=== PATIENT | female | born 1935 | race African-American/Black ===

== ENCOUNTER 2022-02-08 11:19 | Inpatient (IN) | payer MEDICARE, OTHER ==
[~2022-02-08] VITALS: Ht 170.2 cm; Wt 70.4 kg
--- NOTE | 2022-02-08 11:56 | NUR ---
PT IS IN ROOM #3. DR WADE EVALUATED THE PT.
[2022-02-08 12:21] LABS: HEMATOCRIT 37.3 % (31.2-41.9); MEAN CORPUSCULAR HEMOGLOBIN 29.5 uug (24.7-32.8); MEAN CORPUSCULAR VOLUME 89.2 fL (75.5-95.3); PLATELET COUNT (AUTO) 220 K/uL (179-408)
[2022-02-08 12:35] LABS: CARBON DIOXIDE 26 mmol/L (21-32); CHLORIDE 106 mmol/L (98-107); CREATININE 1.3 mg/dL (0.6-1.3); ETHANOL < 3 MG/DL (0-0); GLUCOSE 138 mg/dL (74-106); POTASSIUM 3.7 mmol/L (3.5-5.1); UREA NITROGEN, BLOOD 17 mg/dL (7-18)
[2022-02-08] MEDS ORDERED: MAGN400C PO (12:36)
[2022-02-08] MEDS ORDERED: ERGO500040 PO (12:36)
[2022-02-08] MEDS ORDERED: TEMA15CA PO (12:36)
[2022-02-08] MEDS ORDERED: DORZ10DR11 EACHEYE (12:36)
[2022-02-08] MEDS ORDERED: LATA2.5D15 EACHEYE (12:36)
[2022-02-08] MEDS ORDERED: LOVA40TA2 PO (12:36)
[2022-02-08] MEDS ORDERED: AMLO-212 PO (12:36)
[2022-02-08] MEDS ORDERED: OMEP20TA5 PO (12:36)
[2022-02-08] MEDS ORDERED: IPRA-ALBUTEROL IH (12:36)
[2022-02-08] MEDS ORDERED: BRIM5DRO2 EACHEYE (12:36)
[2022-02-08] MEDS ORDERED: THIO25TA PO (12:36)
[2022-02-08] MEDS ORDERED: OLAN2.5T3 PO (12:36)
[2022-02-08 12:41] LABS: ALANINE AMINOTRANSFERASE 21 U/L (14-59); ALKALINE PHOSPHATASE 37 U/L (50-136); ASPARTATE AMINOTRANSFERASE 13 U/L (15-37); BILIRUBIN,DIRECT 0.1 mg/dL (0.0-0.2); BILIRUBIN,TOTAL 0.2 mg/dL (0.2-1.0); TOTAL PROTEIN, SERUM 6.5 g/dL (6.4-8.2)
[2022-02-08 12:57] LABS: ACETAMINOPHEN < 2.0 ug/mL (10-30)
--- NOTE | 2022-02-08 17:00 | NUR ---
GPS: RECEIVED A REPORT FROM DIANE VILLANUEVA OF ER DEPT ABOUT PT TO BE ADMITTED TO MHU. PT 86 YO FEMALE FROM HOME, FULL CODE WITH NO KNOWN ALLERGY. PER REPORT, PT IS HAVING AUDITORY AND VISUAL HALLUCINATIONS. 5150 PROBABLE CAUSE IS GRAVE DISABILITY DATED 02/08/22 AT 1645. URINALYSIS DONE AND WAITING FOR RESULT. SKIN INTACT. COVID TEST DONE AND NEGATIVE. PT WITH INTERMITTENT CONFUSION ALERT ORIENTED 1-2. UNSTEADY. ON DIAPER AND ASSIST WITH CARE. WILL WAIT FOR PT.
--- NOTE | 2022-02-08 18:19 | NUR ---
PT WAS EVALUATED BY CRISIS PRECISION MACHINIST LOYDA. PT IS ON HOLD GRAVELY DISABLED. PT WAS TRANSFERED TO ROOM #140B. REPORT WAS GIVEN TO MHU RN.
[2022-02-08] MEDS ORDERED: MAGNESIUM HYDROXIDE 30 ML LIQUID UDC PO PRN (18:30)
[2022-02-08] MEDS ORDERED: MAG HYDROX/AL HYDROX/SIMETH 30 ML LIQUID UDC PO PRN (18:30)
[2022-02-08] MEDS ORDERED: ACETAMINOPHEN 325 MG TABLET PO PRN (18:30)
[2022-02-08] MEDS ORDERED: CLONAZEPAM 0.5 MG TABLET PO PRN (18:30)
[2022-02-08] MEDS ORDERED: TEMAZEPAM 7.5 MG CAPSULE PO PRN (18:30)
--- NOTE | 2022-02-08 18:30 | NUR ---
GPS: PT RECEIVED AT [facility] BY MEDICAL ECONOMICS CONSULTANT. PT ACCOMPANIED BY DAUGHTER. DENIES ANY PAIN OR DISCOMFORT. NOT IN DISTRESS AND NO SHORTNESS OF BREATH NOTED. PT APPEARS TO BE PLEASANT. PT HAD DINNER IN THE ROOM. BODY ASSESSMENT DONE WITH STAFF WITH DAUGHTER INSIDE THE ROOM. SKIN INTACT. OLD WHITE SCAR NOTED ON LEFT BUTTOCK WITH NO REDNESS NOTED. INFORMED TONA RYAN, MELIZA FOR DR ABDI. WILL NOTIFY ADONIAN (CARE SERVICES MANAGER).
[2022-02-08 18:34] VITALS: BP 143/60
[2022-02-08] MEDS ORDERED: BLOOD SUGAR DIAGNOSTIC 1 EACH STRIP VI ONE (18:45)
--- NOTE | 2022-02-08 19:30 | NUR ---
GPS: Talked with pt daughter and gave information regarding her mother. Daughter took patient belongings. Daughter wants her mother to be evaluated regarding pt diverticulitis and chest pain. As per daughter her mother had chest pain few weeks ago. retirement assessment done. Pt doesn't have any pain. Pt medically cleared from ER. Pt in no acute distress.Will continue to monitor.
[2022-02-08] MEDS ORDERED: Medication Not On Formulary EA (Omeprazole 1 TAB) PO SCH (21:00)
[2022-02-08] MEDS: ATORVASTATIN 10 MG TABLET PO SCH (21:26)
--- NOTE | 2022-02-08 21:26 | NUR ---
Restoril 7.5mg prn given to pt for sleep as per pt request. pt tolerated it well. Will continue to monitor.
[2022-02-08] MEDS: LATANOPROST OPHT DROP 2.5 ML BOTTLE EACHEYE SCH (21:37)
[2022-02-08 22:06] LABS: *BILIRUBIN,URIN NEGATIVE (NEGATIVE); *BLOOD, URINE NEGATIVE (NEGATIVE); *CLARITY,URINE SLIGHTLY CLOUDY (CLEAR); *COLOR,URINE YELLOW (YELLOW); *KETONES,URINE NEGATIVE (NEGATIVE); *UROBILINOGEN,URINE 0.2 E.U./dl (NORMAL); LEUKOCYTE ESTERASE ,URINE NEGATIVE (NEGATIVE); NITRITE, URINE POSITIVE (NEGATIVE); PH,URINE 6.5 (5.0-8.0); UGLUCOSE NEGATIVE (NEGATIVE)
[2022-02-08 22:22] LABS: *AMPHETAMINE, URINE NEGATIVE (NEGATIVE); *CANNABINOID, URINE NEGATIVE (NEGATIVE); *COCCAINE, URINE NEGATIVE (NEGATIVE); *OPIATE, URINE NEGATIVE (NEGATIVE); *PHENCYCLIDINE SCREEN,URINE NEGATIVE (NEGATIVE)
[2022-02-08 23:39] LABS: RBC,URINE 0-3 /HPF (0-3); WBC,URINE 0-3 /HPF (0-3)
[2022-02-08 23:40] LABS: BACTERIA,URINE MANY /HPF (NONE SEEN); SQUAMOUS EPITHELIAL CELL,UR FEW /HPF (NONE SEEN)
[2022-02-09] MEDS: PANTOPRAZOLE SODIUM 40 MG TABLET.DR PO SCH (06:02)
--- NOTE | 2022-02-09 06:17 | NUR ---
GPS: Pt slept seven hours. Pt in no acute distress. Pt turned and repositioned. Pt had episodes of forgetfulness and needs reorientation. Prescribed medication given and pt tolerated it well. Safety and comfort provided. All needs are met. Will endorse to incoming nurse for continuity of care.
--- NOTE | 2022-02-09 06:48 | NUR ---
GPS:Daughter of the pt called and wants update regarding her mother. Daughter said that her mother is taking the VitD2 once every other week. Her mom got it last Monday. Will endorse to incoming nurse.
[2022-02-09 07:30] VITALS: BP 163/73
[2022-02-09] MEDS: DORZOLAMIDE/TIMOLOL OPHT DROP 10 ML BOTTLE EACHEYE SCH ×2 (08:38→16:41)
[2022-02-09] MEDS: MAGNESIUM OXIDE 400 MG TABLET PO SCH (08:38)
[2022-02-09] MEDS: AMLODIPINE 5 MG TABLET PO SCH (08:38)
[2022-02-09] MEDS: NITROFURANTOIN/NITROFURAN MAC 100 MG CAPSULE PO SCH ×2 (09:30→20:55)
--- NOTE | 2022-02-09 11:20 | NUR ---
Family Contact: SW called and spoke to the pt.'s daughter, Gloria Bess ([phone]) who stated that she is the POA and brought the advanced healthcare directive when pt. was admitted.
--- NOTE | 2022-02-09 11:20 | NUR ---
Initial Discharge Plan: Pt. currently resides at [[id number] [place] [address]] where she lives with her daughter, Gloria Bess ([phone]). Pt. could not state her discharge wishes at this time. Pt.s daughter Gloria Bess ([phone]) stated that she wants the pt. to return home [[id number] [place] [address]] when ready for discharge. SW will continue to collaborate with the family, psychiatrist and the pt. to coordinate a safe and appropriate discharge.
--- NOTE | 2022-02-09 11:25 | NUR ---
SW Admit Source: The pt. was brought in by daughter, Gloria ([phone]) to [facility] ED from home[[id number] [place] [address]] after pt. became increasingly delusional, confused, irritable and responding to visual and auditory hallucinations. Pt. was placed on 5150 hold for GD. Per hold, Gloria reported pt. has decreased appetite, neglecting her hygiene and is unmanageable at home. Gloria would like for the pt. to be discharged to home when stable.
[2022-02-09] MEDS ORDERED: THIORIDAZINE 10 MG TABLET PO SCH (13:00)
[2022-02-09 13:45] LABS: HEMATOCRIT 37.8 % (31.2-41.9); MEAN CORPUSCULAR HEMOGLOBIN 29.7 uug (24.7-32.8); PLATELET COUNT (AUTO) 222 K/uL (179-408)
[2022-02-09 13:56] LABS: CARBON DIOXIDE 26 mmol/L (21-32); CHLORIDE 106 mmol/L (98-107); CREATININE 1.4 mg/dL (0.6-1.3); GLUCOSE 181 mg/dL (74-106); POTASSIUM 3.8 mmol/L (3.5-5.1); UREA NITROGEN, BLOOD 15 mg/dL (7-18)
--- NOTE | 2022-02-09 15:40 | NUR ---
patient is confused and disoriented unable to make any needs known,refused all medication ,MD made aware.patient has poor insight and poor impulse control. requested total care to ADLS.refused to attend group activity ,visited by daughter ,will continue close monitoring.
[2022-02-09 17:15] VITALS: BP 150/70
[2022-02-09 20:00] VITALS: BP 143/61
[2022-02-09] MEDS: ATORVASTATIN 10 MG TABLET PO SCH ×2 (20:55→21:00)
[2022-02-09] MEDS: LATANOPROST OPHT DROP 2.5 ML BOTTLE EACHEYE SCH (20:56)
[2022-02-09] MEDS ORDERED: OLANZAPINE 2.5 MG TABLET PO SCH (21:00)
[2022-02-09] MEDS ORDERED: TEMAZEPAM 7.5 MG CAPSULE PO PRN (21:00)
--- NOTE | 2022-02-09 21:44 | NUR ---
Patient is confused and disoriented. Took her antibiotics for UTI but refused her Lipitor during med pass.
[2022-02-10] MEDS: PANTOPRAZOLE SODIUM 40 MG TABLET.DR PO SCH (06:29)
--- NOTE | 2022-02-10 06:44 | NUR ---
No acute distress identified during the shift. No aggressive or combative behavior noted, remained confused, and disoriented. Patient is cooperative with care when directed. refused protonix in the am. Gloria (daughter) called to get an update and requesting psych and medical doctor to give her an update. Safety measures maintained. Will endorse to the next shift for continuity of care.
[2022-02-10 07:30] VITALS: BP 155/72
[2022-02-10] MEDS: DORZOLAMIDE/TIMOLOL OPHT DROP 10 ML BOTTLE EACHEYE SCH ×2 (08:49→17:48)
[2022-02-10] MEDS: AMLODIPINE 5 MG TABLET PO SCH (08:49)
[2022-02-10] MEDS: MAGNESIUM OXIDE 400 MG TABLET PO SCH (08:49)
[2022-02-10] MEDS: NITROFURANTOIN/NITROFURAN MAC 100 MG CAPSULE PO SCH ×2 (08:49→20:51)
[2022-02-10] MEDS ORDERED: THIORIDAZINE 25 MG TABLET PO SCH ×2 (09:00→13:00)
[2022-02-10] MEDS: MELLARIL PO SCH ×2 (13:07→17:43)
--- NOTE | 2022-02-10 14:30 | NUR ---
GPS: PT FROM BED TRANSFERRED TO CHAIR FOR BREAKFAST. DAUGHTER CAME AT NOON AND WOULD LIKE TO BRING HOME THE PT TOMORROW. DIRECTOR OF THE BIOPHYSICS FACILITY SPOKE WITH DAUGHTER AND AGREED TO BE DISCHARGE TOMORROW. DAUGHTER REQUESTED THAT PT HAVE A HOME HEALTH VISIT OF THEIR CHOICE.
--- NOTE | 2022-02-10 14:35 | NUR ---
Social work Discharge Plan Update Patient's daughter, Gloria ) wants to take patient home with home health as soon as she can. Spoke with Gloria who will pich her mother up tomorrow at 11 00 Monday. She will take responsibility for patient's care. Patient will see Dr Angelina Sher at Dr Joshi's office ). Patient's outsole tacker is Dr Baldomero Newberry ). She will continue with her home health, [facility] ([phone]) after discharge. Daughter is caring and involved.
--- NOTE | 2022-02-10 15:15 | NUR ---
GPS: SPOKE WITH MARIBELL, GAVE THE CONTACTS OF [facility] [phone] FAX [phone] . CALLED THE CARE AND FAXED HNP AND ORDERS. PER [employer]LO CEO & FOUNDER, PT WILL BE DISCHARGE TOMORROW 11AM GOING HOME, WILL BE DEPUTY COUNTY CLERK BY DAUGHTER.
[2022-02-10 16:49] VITALS: BP 154/78
[2022-02-10 20:03] VITALS: BP 148/74
[2022-02-10] MEDS: ATORVASTATIN 10 MG TABLET PO SCH (20:51)
[2022-02-10] MEDS ORDERED: OLANZAPINE 2.5 MG TABLET PO SCH (21:00)
[2022-02-10] MEDS: LATANOPROST OPHT DROP 2.5 ML BOTTLE EACHEYE SCH (21:05)
[2022-02-11] MEDS: PANTOPRAZOLE SODIUM 40 MG TABLET.DR PO SCH (06:06)
[2022-02-11 07:30] VITALS: BP 163/66
[2022-02-11 08:20] VITALS: BP 163/66
[2022-02-11] MEDS: MELLARIL PO SCH (08:20)
[2022-02-11] MEDS: AMLODIPINE 5 MG TABLET PO SCH (08:20)
[2022-02-11] MEDS: DORZOLAMIDE/TIMOLOL OPHT DROP 10 ML BOTTLE EACHEYE SCH (08:20)
[2022-02-11] MEDS: MAGNESIUM OXIDE 400 MG TABLET PO SCH (08:20)
[2022-02-11] MEDS: NITROFURANTOIN/NITROFURAN MAC 100 MG CAPSULE PO SCH (08:20)
--- NOTE | 2022-02-11 11:26 | NUR ---
PT DISCHARGED TODAY IN STABLE CONDITION PER DR. RYAN ORDER. PT IS CONFUSED AND DISORIENTED, BUT NO BEHAVIOR ISSUES AT THIS TIME. NO AGGRESSIVE OR COMBATIVE BEHAVIOR NOTED. LEFT UNIT ON GE-CHAIR TO PRIVATE VEHICLE WITH DAUGHTER MARIBELL. LEFT WITH ALL NOTED BELONGINGS AND PAPERWORK, INCLUDING MEDICAL AND PSYCHIATRIC PRESCRIPTIONS. IN NO ACUTE DISTRESS.
[2022-02-20] MEDS ORDERED: ERGOCALCIFEROL 50,000 UNIT CAPSULE PO SCH (09:00)
== END 2022-02-11 11:36 | disposition home health service (06) | DRG 885 ==
LOC: ER 11:19 → GPS 17:35
PROVIDERS: ADMIT Nurse Practitioner Psychiatric/Mental Health; ATTEND Nurse Practitioner Family
DX: F29 Unspecified psychosis not due to a substance or known physiological condition (principal); N17.9 Acute kidney failure, unspecified; N18.9 Chronic kidney disease, unspecified; N39.0 Urinary tract infection, site not specified; E44.0 Moderate protein-calorie malnutrition; G93.40 Encephalopathy, unspecified; F03.91 Unspecified dementia, unspecified severity, with behavioral disturbance; E78.5 Hyperlipidemia, unspecified; E88.09 Other disorders of plasma-protein metabolism, not elsewhere classified; F20.9 Schizophrenia, unspecified; H40.9 Unspecified glaucoma; K21.9 Gastro-esophageal reflux disease without esophagitis; Z20.822 Contact with and (suspected) exposure to COVID-19; Z68.24 Body mass index [BMI] 24.0-24.9, adult; R41.9 Unspecified symptoms and signs involving cognitive functions and awareness; I12.9 Hypertensive chronic kidney disease with stage 1 through stage 4 chronic kidney disease, or unspecified chronic kidney disease; R73.9 Hyperglycemia, unspecified; H26.9 Unspecified cataract; B96.20 Unspecified Escherichia coli [E. coli] as the cause of diseases classified elsewhere
CPT/HCPCS: 36415; 83735; 85025; 87077; 87086; 93005; 97161; A4663; C1758; G0480; J8499